=== PATIENT | female | born 1965 | race Caucasian/White ===

== ENCOUNTER → 2017-03-12 | Outpatient (CLI) | payer OTHER | END | disposition home or self-care (01) | LOC: CFH 12:24 | DX: Z12.31 Encounter for screening mammogram for malignant neoplasm of breast (principal) | CPT/HCPCS: 77063; G0202 ==

== ENCOUNTER → 2018-04-08 | Outpatient (CLI) | payer OTHER | END | disposition home or self-care (01) | LOC: CFH 14:58 | DX: Z12.31 Encounter for screening mammogram for malignant neoplasm of breast (principal) | CPT/HCPCS: 77063; 77067 ==

== ENCOUNTER → 2019-05-12 | Outpatient (CLI) | payer OTHER | END | disposition home or self-care (01) | LOC: CFH 10:16 | PROVIDERS: ATTEND Obstetrics & Gynecology | DX: N64.4 Mastodynia (principal) | CPT/HCPCS: 76642; 77066; G0279 ==

== ENCOUNTER → 2020-08-02 | Outpatient (CLI) | payer OTHER | END | disposition home or self-care (01) | LOC: CFH 08:23 | PROVIDERS: ATTEND Obstetrics & Gynecology | DX: N63.13 Unspecified lump in the right breast, lower outer quadrant (principal) | CPT/HCPCS: 76642; 77065 ==

== ENCOUNTER → 2020-08-12 | Outpatient (CLI) | payer OTHER ==
[~2020-08-12] MED LIST: ESCI20TA10 PO; HYDR25TA6 PO; METO25TA35 PO; SIMV20TA19 PO
[2020-08-12 15:03] LABS: ALANINE AMINOTRANSFERASE 95 U/L (12-78); ALBUMIN 4.5 g/dL (3.4-5.0); ANION GAP 8 mmol/L (5-15); CALCIUM 9.9 mg/dL (8.5-10.1); CHLORIDE 98 mmol/L (98-107); CREATININE 0.88 mg/dL (0.55-1.02)
[2020-08-12 15:06] LABS: ALKALINE PHOSPHATASE 86 U/L (45-117); BILIRUBIN,TOTAL 0.9 mg/dL (0.2-1.0); TOTAL PROTEIN 8.1 g/dL (6.4-8.2)
== END | disposition home or self-care (01) ==
LOC: STAR 13:06
PROVIDERS: ATTEND Surgery
DX: Z01.812 Encounter for preprocedural laboratory examination (principal); D48.61 Neoplasm of uncertain behavior of right breast
CPT/HCPCS: 36415; 80053

== ENCOUNTER 2020-08-18 05:39 | Day surgery (SDC) | payer OTHER ==
[~2020-08-18] VITALS: Ht 162.6 cm; Wt 77.0 kg
[2020-08-18 06:11] VITALS: BP 136/92
[2020-08-18 06:28] LABS: HCG UR SG 1.027 (1.003-1.030)
[2020-08-18] MEDS ORDERED: CHLORHEXIDINE 15 ML UDC MM ONE (06:30)
[2020-08-18] MEDS ORDERED: LACTATED RINGERS 1,000 ML IV SCH (06:30)
[2020-08-18] MEDS ORDERED: BUPIVACAINE/PF 0.5% ONE (06:49)
[2020-08-18] MEDS ORDERED: ISOSULFAN BLUE 10 MG/ML, 5ML IV ONE (06:49)
[2020-08-18] MEDS ORDERED: EPINEPHRINE 1 MG/ML, 1ML ONE (06:50)
[2020-08-18] MEDS ORDERED: MIDAZOLAM 1 MG/ML, 2ML ONE (06:59)
[2020-08-18] MEDS ORDERED: FENTANYL PF 250 MCG/5ML ONE (06:59)
[2020-08-18] MEDS ORDERED: PROPOFOL 10 MG/ML, 20ML ONE (07:29)
[2020-08-18] MEDS ORDERED: SUCCINYLCHOLINE 20 MG/ML, 10ML ONE (07:29)
[2020-08-18] MEDS ORDERED: ONDANSETRON 2MG/ML, 2ML ONE (07:29)
[2020-08-18] MEDS ORDERED: CEFAZOLIN 1,000 MG ONE (07:29)
[2020-08-18] MEDS ORDERED: METOCLOPRAMIDE 5 MG/ML, 2ML ONE (07:29)
[2020-08-18] MEDS ORDERED: ESMOLOL 100 MG/10 ML ONE (07:29)
[2020-08-18] MEDS ORDERED: DEXAMETHASONE 4 MG/ML, 1ML ONE (07:29)
[2020-08-18] MEDS ORDERED: OXYcodone IR 5MG TABLET PO ONE (07:30)
[2020-08-18] MEDS ORDERED: ACETAMINOPHEN 500 MG TABLET PO ONE (07:30)
[2020-08-18] MEDS ORDERED: ONDA4TAB7 PO (08:26)
[2020-08-18] MEDS ORDERED: HYDR-1067 PO (08:26)
[2020-08-18] MEDS ORDERED: FENTANYL PF 100 MCG/2ML IV PRN (08:30)
[2020-08-18] MEDS ORDERED: ACETAMINOPHEN 325 MG TABLET PO PRN (08:30)
[2020-08-18] MEDS ORDERED: LORazepam 2 MG/ML, 1ML IVPush PRN (08:30)
[2020-08-18] MEDS ORDERED: LABETALOL 5MG/ML, 20ML IV PRN (08:30)
[2020-08-18] MEDS ORDERED: ONDANSETRON 2MG/ML, 2ML IVPush PRN (08:30)
[2020-08-18] MEDS ORDERED: HALOPERIDOL 5 MG/ML IV PRN (08:30)
[2020-08-18] MEDS ORDERED: EPHEDRINE 50 MG/ML, 1ML IVPush PRN (08:30)
[2020-08-18] MEDS ORDERED: DIPHENHYDRAMINE 50 MG/ML, 1ML ONE (08:30)
[2020-08-18] MEDS ORDERED: OXYcodone 5 MG/5 ML ORAL.SOL UDC PO PRN (08:30)
[2020-08-18] MEDS ORDERED: hydrALAzine 20 MG/ML, 1ML IV PRN (08:30)
[2020-08-18] MEDS ORDERED: PROMETHAZINE 25 MG/ML, 1ML IVPush PRN (08:30)
[2020-08-18] MEDS ORDERED: METHOCARBAMOL 1,000 MG in DEXTROSE 5% 100 ML IV PRN (08:30)
[2020-08-18] MEDS ORDERED: HYDROmorphone 1 MG/ML, 1ML INJ IVPush PRN (08:30)
[2020-08-18] MEDS ORDERED: MEPERIDINE/PF 25MG/0.5ML IVPush PRN (08:30)
[2020-08-18] MEDS ORDERED: DIPHENHYDRAMINE 50 MG/ML, 1ML IVPush PRN (09:00)
== END 2020-08-18 10:05 | disposition home or self-care (01) ==
LOC: OUT 05:39
PROVIDERS: ATTEND Surgery
DX: C50.011 Malignant neoplasm of nipple and areola, right female breast (principal); I10 Essential (primary) hypertension; F06.4 Anxiety disorder due to known physiological condition; F17.210 Nicotine dependence, cigarettes, uncomplicated; Z17.0 Estrogen receptor positive status [ER+]; Z20.822 Contact with and (suspected) exposure to COVID-19; Z79.899 Other long term (current) drug therapy; Z98.890 Other specified postprocedural states; Z80.3 Family history of malignant neoplasm of breast
CPT/HCPCS: 19120; 81025; 88307; 88341; 88342; 88360; J0171; J0330; J0690; J1100; J1200; J2250; J2405; J2704; J2765; J3010; J7120; U0003; 88305

== ENCOUNTER 2020-09-01 10:15 | Day surgery (SDC) | payer OTHER ==
[~2020-09-01] VITALS: Ht 162.6 cm; Wt 80.7 kg
[~2020-09-01 10:15] MED LIST changes: +HYDR-1067 PO; +ONDA4TAB7 PO
[2020-09-01] MEDS ORDERED: CHLORHEXIDINE 15 ML UDC MM ONE (11:30)
[2020-09-01] MEDS ORDERED: LACTATED RINGERS 1,000 ML IV SCH (11:30)
[2020-09-01 12:26] VITALS: BP 163/100
[2020-09-01] MEDS ORDERED: MIDAZOLAM 1 MG/ML, 2ML ONE (13:04)
[2020-09-01] MEDS ORDERED: FENTANYL PF 100 MCG/2ML ONE ×2 (13:47→14:32)
[2020-09-01] MEDS ORDERED: BUPIVACAINE/PF 0.5% ONE (13:52)
[2020-09-01] MEDS ORDERED: SCOPOLAMINE 1MG PATCH TD ONE (13:56)
[2020-09-01] MEDS ORDERED: MEPERIDINE/PF 25MG/0.5ML IVPush PRN (14:00)
[2020-09-01] MEDS ORDERED: LABETALOL 5MG/ML, 20ML IV PRN (14:00)
[2020-09-01] MEDS ORDERED: HALOPERIDOL 5 MG/ML IV PRN (14:00)
[2020-09-01] MEDS ORDERED: hydrALAzine 20 MG/ML, 1ML IV PRN (14:00)
[2020-09-01] MEDS ORDERED: PROMETHAZINE 25 MG/ML, 1ML IVPush PRN (14:00)
[2020-09-01] MEDS ORDERED: HYDROmorphone 1 MG/ML, 1ML INJ IVPush PRN (14:00)
[2020-09-01] MEDS ORDERED: ACETAMINOPHEN 325 MG TABLET PO PRN (14:00)
[2020-09-01] MEDS ORDERED: morphine SULFATE 10 MG/ML, 1ML IVPush PRN (14:00)
[2020-09-01] MEDS ORDERED: FENTANYL PF 100 MCG/2ML IV PRN (14:00)
[2020-09-01] MEDS ORDERED: ISOSULFAN BLUE 10 MG/ML, 5ML IV ONE (14:08)
[2020-09-01] MEDS ORDERED: EPINEPHRINE 1 MG/ML, 1ML ONE (14:08)
[2020-09-01] MEDS ORDERED: DEXAMETHASONE 4 MG/ML, 1ML ONE (14:24)
[2020-09-01] MEDS ORDERED: ONDANSETRON 2MG/ML, 2ML ONE (14:31)
[2020-09-01] MEDS ORDERED: CEFAZOLIN 1,000 MG ONE (14:31)
[2020-09-01] MEDS ORDERED: PROPOFOL 10 MG/ML, 20ML ONE (14:31)
[2020-09-01] MEDS ORDERED: BACITRACIN OINT 500U/GM, 15 GM ONE (15:11)
[2020-09-01] MEDS ORDERED: HYDR-1067 PO (15:33)
[2020-09-01] MEDS ORDERED: OXYcodone 5 MG/5 ML ORAL.SOL UDC ONE (15:40)
[2020-09-01] MEDS: OXYcodone 5 MG/5 ML ORAL.SOL UDC PO PRN ×2 (15:47→16:46)
[2020-09-01] MEDS ORDERED: hydrALAzine 20 MG/ML, 1ML ONE (15:53)
== END 2020-09-01 17:19 | disposition home or self-care (01) ==
LOC: OUT 10:15 → EDSTATUS 12:30 → OUT 17:19
PROVIDERS: ATTEND Surgery
DX: C50.511 Malignant neoplasm of lower-outer quadrant of right female breast (principal); I10 Essential (primary) hypertension; E78.5 Hyperlipidemia, unspecified; F06.4 Anxiety disorder due to known physiological condition; F17.210 Nicotine dependence, cigarettes, uncomplicated; Z20.822 Contact with and (suspected) exposure to COVID-19; Z79.899 Other long term (current) drug therapy; Z98.890 Other specified postprocedural states; Z80.3 Family history of malignant neoplasm of breast
CPT/HCPCS: 38525; 38792; 88307; 88333; 88334; A9541; C1729; J0171; J0360; J0690; J1100; J2250; J2405; J2704; J3010; J7120; U0003

== ENCOUNTER → 2020-09-21 | Outpatient (CLI) | payer OTHER | END | disposition home or self-care (01) | LOC: ROC 09:03 | PROVIDERS: ATTEND Radiology Radiation Oncology | DX: C50.411 Malignant neoplasm of upper-outer quadrant of right female breast (principal); F41.9 Anxiety disorder, unspecified; I10 Essential (primary) hypertension; E78.5 Hyperlipidemia, unspecified; Z87.891 Personal history of nicotine dependence; Z79.899 Other long term (current) drug therapy; Z98.890 Other specified postprocedural states; Z17.0 Estrogen receptor positive status [ER+] | CPT/HCPCS: 99214; G0463 ==

== ENCOUNTER 2020-11-16 12:33 | Outpatient (CLI) | payer OTHER ==
[~2020-11-16 12:33] MED LIST changes: -HYDR-1067 PO; +HYDR-2214 PO
== END 2020-11-16 23:59 | disposition home or self-care (01) ==
LOC: ROC 12:33
PROVIDERS: ATTEND Radiology Radiation Oncology
DX: Z02.9 Encounter for administrative examinations, unspecified (principal)

== ENCOUNTER → 2020-11-24 | Outpatient (CLI) | payer OTHER | END | disposition home or self-care (01) | LOC: ROC 11-23 07:38 | PROVIDERS: ATTEND Radiology Radiation Oncology | DX: Z08 Encounter for follow-up examination after completed treatment for malignant neoplasm (principal); Z85.3 Personal history of malignant neoplasm of breast; F41.9 Anxiety disorder, unspecified; I10 Essential (primary) hypertension; E78.5 Hyperlipidemia, unspecified; Z17.0 Estrogen receptor positive status [ER+]; Z79.899 Other long term (current) drug therapy; Z87.891 Personal history of nicotine dependence | CPT/HCPCS: 99213; G0463 ==

== ENCOUNTER → 2021-01-18 | Outpatient (CLI) | payer OTHER | END | disposition home or self-care (01) | LOC: CFH 10:49 | PROVIDERS: ATTEND Internal Medicine Hematology & Oncology | DX: C50.811 Malignant neoplasm of overlapping sites of right female breast (principal); M85.89 Other specified disorders of bone density and structure, multiple sites | CPT/HCPCS: 77080 ==

== ENCOUNTER → 2021-02-22 | Outpatient (CLI) | payer OTHER | END | disposition home or self-care (01) | LOC: CFH 09:42 | PROVIDERS: ATTEND Radiology Radiation Oncology | DX: C50.411 Malignant neoplasm of upper-outer quadrant of right female breast (principal) | CPT/HCPCS: 77061; 77065; G0279 ==

== ENCOUNTER 2021-04-06 07:28 | Outpatient (CLI) | payer OTHER | END 2021-04-06 23:59 | disposition home or self-care (01) | LOC: ROC 07:28 | PROVIDERS: ATTEND Radiology Radiation Oncology | DX: Z08 Encounter for follow-up examination after completed treatment for malignant neoplasm (principal); Z85.3 Personal history of malignant neoplasm of breast | CPT/HCPCS: 99213; G0463 ==